=== PATIENT | male | born 1990 | race Caucasian/White ===

== ENCOUNTER 2017-01-11 17:48 | Emergency (ER) | payer OTHER ==
[2017-01-11 18:01] VITALS: BP 127/80; PULSE 78; RESP 17; TEMP 98.7
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
== END 2017-01-11 19:21 | disposition home or self-care (01) ==
LOC: EC 17:48
DX: S69.91XA Unspecified injury of right wrist, hand and finger(s), initial encounter (principal); Y04.0XXA Assault by unarmed brawl or fight, initial encounter; F17.200 Nicotine dependence, unspecified, uncomplicated
CPT/HCPCS: 99283

== ENCOUNTER 2021-01-30 01:37 | Emergency (ER) | payer OTHER ==
[2021-01-30 01:42] VITALS: RESP 20
[2021-01-30] MEDS ORDERED: ONDANSETRON 4 MG/2 ML VIAL IVP STA (01:53)
[2021-01-30] MEDS ORDERED: ACETAMINOPHEN TAB 500 MG TAB PO STA (01:53)
[2021-01-30] MEDS ORDERED: MORPHINE SULFATE 2 MG/ML SYRINGE IVP STA (01:53)
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
[2021-01-30 02:37] VITALS: BP 132/80; PULSE 79; TEMP 98.2
== END 2021-01-30 02:37 | disposition home or self-care (01) ==
LOC: EC 01:37
DX: S06.0X0A Concussion without loss of consciousness, initial encounter (principal); F17.200 Nicotine dependence, unspecified, uncomplicated; F12.90 Cannabis use, unspecified, uncomplicated; Y04.0XXA Assault by unarmed brawl or fight, initial encounter
CPT/HCPCS: 99284; 96374; 96375; 72125; 70450; J2405; J2270

== ENCOUNTER 2021-08-20 13:58 | Emergency (ER) | payer OTHER ==
[2021-08-20 14:08] VITALS: TEMP 97.6
[2021-08-20 15:59] LABS: Basophils # (A) 0.1 k/uL (0-0.2); Basophils % (A) 1 %; Eosinophils # (A) 0.2 k/uL (0-0.7); Eosinophils % (A) 3 %; HCT 44.4 % (39.0-53.0); HGB 15.2 gm/dL (13.0-17.5); Lymphocytes # (A) 1.1 k/uL (1.0-4.8); Lymphocytes % (A) 16 %; MCH 30.6 pg (25.0-35.0); MCHC 34.2 g/dL (31.0-37.0); MCV 89.6 fL (80.0-100.0); Mean Platelet Volume 8.2; Monocytes # (A) 0.6 k/uL (0-1.0); Monocytes % (A) 9 %; Neutrophils # (A) 4.4 k/uL (1.3-7.7); Neutrophils % (A) 68 %; Platelet Count 276 k/uL (150-450); RBC 4.95 m/uL (4.30-5.90); RDW 12.4 % (11.5-15.5); WBC 6.5 k/uL (3.8-10.6)
[2021-08-20 16:09] LABS: ALT 101 U/L (4-49); AST 142 U/L (17-59); African American GFR (CKD) >90 (>60 ml/min/1.73 sqM); Albumin 4.3 g/dL (3.5-5.0); Alkaline Phosphatase 70 U/L (38-126); Anion Gap 12 mmol/L; Blood Urea Nitrogen 13 mg/dL (9-20); Calcium 9.6 mg/dL (8.4-10.2); Carbon Dioxide 24 mmol/L (22-30); Chloride 104 mmol/L (98-107); Glucose 116 mg/dL (74-99); Magnesium 1.4 mg/dL (1.6-2.3); Non-African American GFR(CKD) >90 (>60 ml/min/1.73 sqM); Potassium 3.7 mmol/L (3.5-5.1); Sodium 140 mmol/L (137-145); Total Bilirubin 0.8 mg/dL (0.2-1.3); Total Protein 7.7 g/dL (6.3-8.2)
[2021-08-20 16:16] LABS: Partial Thromboplastin Time 22.4 sec (22.0-30.0); Prothrombin Time 10.7 sec (9.0-12.0)
[2021-08-20] MEDS ORDERED: MAGNESIUM OXIDE 400 MG TAB PO STA (16:33)
--- NOTE | 2021-08-20 16:38 | XR ---
EXAMINATION TYPE: XR chest 1V DATE OF EXAM: 08/20/2021 COMPARISON: Chest x-ray 2 days ago. HISTORY: Chest pain and racing heart. TECHNIQUE: Single frontal view of the chest is obtained. FINDINGS: Improved inspiration on current study with improved aeration in the lower lungs. There is n o focal air space opacity, pleural effusion, or pneumothorax seen. The cardiac silhouette size is cu rrently within normal limits. The osseous structures are intact. IMPRESSION: No acute process currently.
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
--- NOTE | 2021-08-20 17:13 | CT ---
EXAMINATION TYPE: CT chest angio for PE DATE OF EXAM: 08/20/2021 COMPARISON: NONE HISTORY: Chest pain, shortness of breath. CT DLP: 314.8 mGycm. Automated Exposure Control for Dose Reduction was Utilized. CONTRAST: CTA scan of the thorax is performed with IV Contrast, patient injected with 100 mL of Isovue 370, pul monary embolism protocol. MIP Images are created on CT scanner and reviewed. FINDINGS: LUNGS: Tiny bilateral pleural effusions. Mild bibasilar linear scarring and/or atelectasis. Slightly more prominent focal left basilar atelectasis and/or less likely developing consolidation. Mild centr al alveolar edema. No suspicious focal consolidation. MEDIASTINUM: There is satisfactory enhancement of the pulmonary artery and its branches, there is no CT evidence for pulmonary embolism. Satisfactory enhancement of the aorta without aneurysm or dissect ion. There are no greater than 1 cm hilar or mediastinal lymph nodes. No cardiomegaly or pericardia l effusion is seen. OTHER: No additional significant abnormality is seen. IMPRESSION: No CT evidence for acute pulmonary embolism. Tiny bilateral pleural effusions with mild c entral alveolar edema. Correlate for fluid overload state.
[2021-08-20 17:59] VITALS: BP 145/95; PULSE 88; RESP 16
== END 2021-08-20 17:59 | disposition home or self-care (01) ==
LOC: EC 13:58
DX: F41.9 Anxiety disorder, unspecified (principal); R07.89 Other chest pain; F17.290 Nicotine dependence, other tobacco product, uncomplicated
CPT/HCPCS: 36415; 93005; 85379; 80053; 83735; 84484; 85025; 85610; 85730; 71045; 71275; 99285; Q9967

== ENCOUNTER → 2021-08-24 | Outpatient (CLI) | payer OTHER ==
[2021-08-24 18:44] LABS: African American GFR (CKD) 138.9 (60.0-200.0); Albumin 4.2 g/dL (3.8-4.9); Albumin/Globulin Ratio 1.56 (1.60-3.17); Anion Gap 14.4 mmol/L (10.00-18.00); BUN/Creat Ratio 15.88 Ratio (12.00-20.00); Blood Urea Nitrogen 12.7 mg/dL (9.0-27.0); Calcium 9.3 mg/dL (8.7-10.3); Carbon Dioxide 22.6 mmol/L (20.0-27.5); Globulin 2.7 g/dL (1.6-3.3); Non-African American GFR(CKD) 119.9 (60.0-200.0); Potassium 4.3 mmol/L (3.5-5.5); Total Bilirubin 0.3 mg/dL (0.30-1.20); Total Protein 6.9 g/dL (6.2-8.2)
== END | disposition home or self-care (01) ==
LOC: LABWHC1 13:43
PROVIDERS: ATTEND Registered Nurse
DX: R79.89 Other specified abnormal findings of blood chemistry (principal)
CPT/HCPCS: 36415; 80053

== ENCOUNTER 2021-11-20 19:38 | Emergency (ER) | payer OTHER ==
[2021-11-20 19:42] VITALS: RESP 18
[2021-11-20] MEDS ORDERED: SODIUM CHLORIDE 0.9% 1,000 ML IV STA (19:49)
[2021-11-20] MEDS ORDERED: diphenhydrAMINE 50 MG/ML 1 ML VIAL IVP STA (19:50)
[2021-11-20 20:30] LABS: Appearance,Urine Clear (Clear); Bilirubin,Urine Negative (Negative); Blood,Urine Negative (Negative); Color,Urine Light Yellow; Glucose,Urine (UA) Negative (Negative); Ketones,Urine Negative (Negative); Leukocyte Esterase,Urine Negative (Negative); Nitrite,Urine Negative (Negative); PH, Urine 7.5 (5.0-8.0); Protein,Urine Negative (Negative); Specific Gravity,Urine 1.013 (1.001-1.035); Urobilinogen,Urine <2.0 mg/dL (<2.0)
[2021-11-20 20:30] LABS: Basophils # (A) 0.1 k/uL (0-0.2); Basophils % (A) 1 %; Eosinophils # (A) 0.2 k/uL (0-0.7); Eosinophils % (A) 2 %; HCT 46.9 % (39.0-53.0); Lymphocytes # (A) 2.5 k/uL (1.0-4.8); Lymphocytes % (A) 31 %; MCH 30.9 pg (25.0-35.0); MCHC 34.1 g/dL (31.0-37.0); MCV 90.7 fL (80.0-100.0); Mean Platelet Volume 8.2; Monocytes # (A) 0.6 k/uL (0-1.0); Monocytes % (A) 7 %; Neutrophils # (A) 4.5 k/uL (1.3-7.7); Neutrophils % (A) 55 %; Platelet Count 283 k/uL (150-450); RBC 5.17 m/uL (4.30-5.90); RDW 12.6 % (11.5-15.5); WBC 8.1 k/uL (3.8-10.6)
[2021-11-20 20:54] LABS: ALT 21 U/L (4-49); AST 26 U/L (17-59); African American GFR (CKD) >90 (>60 ml/min/1.73 sqM); Albumin 5.1 g/dL (3.5-5.0); Alkaline Phosphatase 81 U/L (38-126); Anion Gap 13 mmol/L; Blood Urea Nitrogen 15 mg/dL (9-20); Calcium 9.4 mg/dL (8.4-10.2); Carbon Dioxide 23 mmol/L (22-30); Chloride 103 mmol/L (98-107); Glucose 113 mg/dL (74-99); Non-African American GFR(CKD) 88 (>60 ml/min/1.73 sqM); Potassium 3.4 mmol/L (3.5-5.1); Sodium 139 mmol/L (137-145); Total Bilirubin 0.6 mg/dL (0.2-1.3); Total Protein 8.5 g/dL (6.3-8.2)
[2021-11-20 20:55] LABS: Amphetamine Screen,Urine Not Detected (NotDetected); Barbiturate Screen,Urine Not Detected (NotDetected); Benzodiazepines Screen,Urine Not Detected (NotDetected); Cocaine Screen,Urine Not Detected (NotDetected); Methadone Screen, Urine Not Detected (NotDetected); Opiate Screen,Urine Not Detected (NotDetected); Oxycodone Screen, Urine Not Detected (NotDetected); Phencyclidine Screen,Urine Not Detected (NotDetected); Tricyclic Antidepressant,Urine Not Detected (NotDetected); Urn Cannabinoid Scrn Not Detected (NotDetected)
--- NOTE | 2021-11-20 21:37 | ED ---
Anxiety HPI - General Chief Complaint: Anxiety Stated Complaint: Panic Attack/ Anxiety Time Seen by Provider: 11/20/21 19:42 Source: patient Mode of arrival: ambulatory - History of Present Illness Initial Comments: Patient is a 31-year-old male who presents to the emergency department for evaluation of panic attack. Patient states the panic attack started suddenly while he was at home. States he feels his heart racing and can't stop shaking. Denies chest pain and shortness of breath. 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 Patient states he has not used drugs or alcohol today. He states he is on probation and has to test for alcohol and ortiz gs randomly 5 times a month. Patient has been evaluated for anxiety before in her emergency department which was shortly after his overdose. Patient states he does have a lot of issues at home going on that may be causing his anxiety. He has an appointment with [facility] on November 28. - Related Data Home Medications: Previous Rx's Medication Instructions Recorded LORazepam [Ativan] 1 mg PO BID 3 Days #6 tab 11/20/21 hydrOXYzine HCL 25 mg PO DAILY PRN #30 tab 11/20/21 Allergies/Adverse Reactions: Allergies Allergy/AdvReac Type Severity Reaction Status Date / Time No Known Allergies Allergy Verified 11/20/21 21:06 Review of Systems ROS Statement: Those systems with pertinent positive or pertinent negative responses have been documented in the HPI. ROS Other: All systems not noted in ROS Statement are negative. Past Medical History Past Medical History: No Reported History Additional Past Medical History / Comment(s): smoker, vaper History of Any Multi-Drug Resistant Organisms: None Reported Past Surgical History: No Surgical Hx Reported Past Psychological History: Anxiety Smoking Status: Current every day smoker, Vaper Past Alcohol Use History: Occasional Past Drug Use History: Marijuana, Methamphetamine General Exam Limitations: no limitations General appearance: alert, anxious Eye exam: Present: normal appearance, PERRL, EOMI. Absent: scleral icterus, conjunctival injection, periorbital swelling Respiratory exam: Present: normal lung sounds bilaterally. Absent: respiratory distress, wheezes, rales, rhonchi, stridor Cardiovascular Exam: Present: regular rate, normal rhythm, normal heart sounds. Absent: systolic murmur, diastolic murmur, rubs, gallop, clicks GI/Abdominal exam: Present: soft, normal bowel sounds. Absent: distended, ten derness, guarding, rebound, rigid Neurological exam: Present: alert, oriented X3, CN II-XII intact Psychiatric exam: Present: normal affect, anxious Skin exam: Present: warm, dry, intact, normal color. Absent: rash Course Vital Signs 11/20/21 11/20/21 11/20/21 19:40 20:34 22:14 Temperature 97.8 F 98.2 F Pulse Rate 92 67 Pulse Rate [ 82 Cabin Agent ] Respiratory 18 18 Rate Blood Pressure 137/94 129/81 O2 Sat by Pulse 100 99 Oximetry Medical Decision Making - Medical Decision Making This is a 31-year-old male who presents to the emergency department for evaluation of panic attack. Thorough history and examination were performed. Denies chest pain and shortness of breath. Patient appears very anxious. He is shaking during my exam. Does have history of methamphetamine overdose however denies drug and alcohol use today. EKG shows sinus tachycardia with ventricular rate at 103. Urine drug screen is normal. Patient given IV Benadryl which he states calmed him significantly. Patient repeatedly expresses concern about having repeat panic attacks until his appointment with [facility] on November 28. Patient states he is allowed to take controlled substances during probation if he is prescribed them by a medical provider. Patient and I agreed on a very short course of Ativan to use in case of emergency. I will also send him home with hydroxyzine. Patient to follow-up with [facility] as planned. He verbalizes understanding and is agreeable to this plan. Dr. Gutierrez is my attending. - Lab Data Result diagrams: 11/20/21 20:06 11/20/21 20:06 Lab Results 11/20/21 11/20/21 11/20/21 Range/Units 20:05 20:06 20:06 WBC 8.1 (3.8-10.6) k/uL RBC 5.17 (4.30-5.90) m/uL Hgb 16.0 (13.0-17.5) gm/dL Hct 46.9 (39.0-53.0) % MCV 90.7 (80.0-100.0) fL MCH 30.9 (25.0-35.0) pg MCHC 34.1 (31.0-37.0) g/dL RDW 12.6 (11.5-15.5) % Plt Count 283 (150-450) k/uL MPV 8.2 Neutrophils % 55 % Lymphocytes % 31 % Monocytes % 7 % Eosinophils % 2 % Basophils % 1 % Neutrophils # 4.5 (1.3-7.7) k/uL Lymphocytes # 2.5 (1.0-4.8) k/uL Monocytes # 0.6 (0-1.0) k/uL Eosinophils # 0.2 (0-0.7) k/uL Basophils # 0.1 (0-0.2) k/uL Sodium 139 (137-145) mmol/L Potassium 3.4 L (3.5-5.1) mmol/L Chloride 103 (98-107) mmol/L Carbon Dioxide 23 (22-30) mmol/L Anion Gap 13 mmol/L BUN 15 (9-20) mg/dL Creatinine 1.12 (0.66-1.25) mg/dL Est GFR (CKD-EPI)AfAm >90 (>60 ml/min/1.73 sqM) Est GFR (CKD-EPI)NonAf 88 (>60 ml/min/1.73 sqM) Glucose 113 H (74-99) mg/dL Calcium 9.4 (8.4-10.2) mg/dL Total Bilirubin 0.6 (0.2-1.3) mg/dL AST 26 (17-59) U/L ALT 21 (4-49) U/L Alkaline Phosphatase 81 (38-126) U/L Troponin I (0.000-0.034) ng/mL Total Protein 8.5 H (6.3-8.2) g/dL Albumin 5.1 H (3.5-5.0) g/dL Urine Color Light Yellow Urine Appearance Clear (Clear) Urine pH 7.5 (5.0-8.0) Ur Specific [place] 1.013 (1.001-1.035) Urine Protein Negative (Negative) Urine Glucose (UA) Negative (Negative) Urine Ketones Negative (Negative) Urine Blood Negative (Negative) Urine Nitrite Negative (Negative) Urine Bilirubin Negative (Negative) Urine Urobilinogen <2.0 (<2.0) mg/dL Ur Leukocyte Esterase Negative (Negative) Urine Opiates Screen Not Detected (NotDetected) Ur Oxycodone Screen Not Detected (NotDetected) Urine Methadone Screen Not Detected (NotDetected) Ur Propoxyphene Screen Not Detected (NotDetected) Ur Barbiturates Screen Not Detected (NotDetected) U Tricyclic Antidepress Not Detected (NotDetected) Ur Phencyclidine Scrn Not Detected (NotDetected) Ur Amphetamines Screen Not Detected (NotDetected) U Methamphetamines Scrn Not Detected (NotDetected) U Benzodiazepines Scrn Not Detected (NotDetected) Urine Cocaine Screen Not Detected (NotDetected) U Marijuana (THC) Screen Not Detected (NotDetected) 11/20/21 Range/Units 20:06 WBC (3.8-10.6) k/uL RBC (4.30-5.90) m/uL Hgb (13.0-17.5) gm/dL Hct (39.0-53.0) % MCV (80.0-100.0) fL MCH (25.0-35.0) pg MCHC (31.0-37.0) g/dL RDW (11.5-15.5) % Plt Count (150-450) k/uL MPV Neutrophils % % Lymphocytes % % Monocytes % % Eosinophils % % Basophils % % Neutrophils # (1.3-7.7) k/uL Lymphocytes # (1.0-4.8) k/uL Monocytes # (0-1.0) k/uL Eosinophils # (0-0.7) k/uL Basophils # (0-0.2) k/uL Sodium (137-145) mmol/L Potassium (3.5-5.1) mmol/L Chloride (98-107) mmol/L Carbon Dioxide (22-30) mmol/L Anion Gap mmol/L BUN (9-20) mg/dL Creatinine (0.66-1.25) mg/dL Est GFR (CKD-EPI)AfAm (>60 ml/min/1.73 sqM) Est GFR (CKD-EPI)NonAf (>60 ml/min/1.73 sqM) Glucose (74-99) mg/dL Calcium (8.4-10.2) mg/dL Total Bilirubin (0.2-1.3) mg/dL AST (17-59) U/L ALT (4-49) U/L Alkaline Phosphatase (38-126) U/L Troponin I <0.012 (0.000-0.034) ng/mL Total Protein (6.3-8.2) g/dL Albumin (3.5-5.0) g/dL Urine Color Urine Appearance (Clear) Urine pH (5.0-8.0) Ur Specific [place] (1.001-1.035) Urine Protein (Negative) Urine Glucose (UA) (Negative) Urine Ketones (Negative) Urine Blood (Negative) Urine Nitrite (Negative) Urine Bilirubin (Negative) Urine Urobilinogen (<2.0) mg/dL Ur Leukocyte Esterase (Negative) Urine Opiates Screen (NotDetected) Ur Oxycodone Screen (NotDetected) Urine Methadone Screen (NotDetected) Ur Propoxyphene Screen (NotDetected) Ur Barbiturates Screen (NotDetected) U Tricyclic Antidepress (NotDetected) Ur Phencyclidine Scrn (NotDetected) Ur Amphetamines Screen (NotDetected) U Methamphetamines Scrn (NotDetected) U Benzodiazepines Scrn (NotDetected) Urine Cocaine Screen (NotDetected) U Marijuana (THC) Screen (NotDetected) - EKG Data EKG Comments: EKG taken at 15:40 Sinus tachycardia with occasional ectopic premature complexes Ventricular rate 103 AR interval 174 QRS duration 108 QTC 397 Disposition Clinical Impression: Panic attack, Acute anxiety, Hyperventilation Disposition: HOME SELF-CARE Condition: Good Instructions (If sedation given, give patient instructions): Anxiety (ED), Panic Attack (ED) Additional Instructions: Please take medication as directed. Follow up with [facility] at your scheduled appointment on November 28. Return to the emergency department experience new, concerning, or worsening symptoms. Prescriptions: LORazepam [Ativan] 1 mg PO BID 3 Days #6 tab hydrOXYzine HCL 25 mg PO DAILY PRN #30 tab PRN Reason: Agitation Or Acute Anxiety Is patient prescribed a controlled substance at d/c from ED?: Yes If prescribed controlled substance>3 days was MAPS reviewed?: Yes Referrals: None,Stated [Primary Care Provider] - 1-2 days Time of Disposition: 21:37
[2021-11-20 22:15] VITALS: BP 129/81; PULSE 67; TEMP 98.2
== END 2021-11-20 22:18 | disposition home or self-care (01) ==
LOC: EC 19:38
DX: F41.9 Anxiety disorder, unspecified (principal); R06.4 Hyperventilation; F41.0 Panic disorder [episodic paroxysmal anxiety]; F17.209 Nicotine dependence, unspecified, with unspecified nicotine-induced disorders
CPT/HCPCS: 36415; 93005; 80053; 84484; 85025; 81003; 80306; 99285; 96374; 96361; J1200